=== PATIENT | female | born 1990 | race Caucasian/White ===

== ENCOUNTER → 2022-09-23 | Outpatient (CLI) | payer OTHER ==
[2022-09-23 20:27] LABS: Basophils # (A) 0.02 X 10*3/uL (0.00-0.10); Basophils % (A) 0.2 %; Eosinophils # (A) 0.06 X 10*3/uL (0.04-0.35); Eosinophils % (A) 0.5 %; HGB 13.5 d/dL (12.0-15.0); Lymphocytes # (A) 2.72 X 10*3/uL (0.90-5.00); Lymphocytes % (A) 24.6 %; MCH 30.4 pg (27.0-32.0); MCHC 32.9 d/dL (32.0-37.0); MCV 92.3 FL (80.0-97.0); Mean Platelet Volume 10.2 FL (9.5-12.2); Monocytes # (A) 0.58 X 10*3/uL (0.20-1.00); Monocytes % (A) 5.2 %; NRBC Per 100 WBC 0 X 10*3/uL (0.00-0.01); Neutrophils # (A) 7.65 X 10*3/uL (1.80-7.70); Neutrophils % (A) 69.2 %; Platelet Count 350 X 10*3/uL (140-440); RBC 4.44 X 10*6/uL (4.10-5.20); RDW 12.4 % (11.5-14.5); WBC 11.06 X 10*3/uL (4.50-10.00)
== END | disposition home or self-care (01) ==
LOC: LABWHC1 12:51
PROVIDERS: ATTEND Obstetrics & Gynecology
DX: Z01.812 Encounter for preprocedural laboratory examination (principal)
CPT/HCPCS: 36415; 85025

== ENCOUNTER → 2022-12-19 | Outpatient (CLI) | payer OTHER | END | disposition home or self-care (01) | LOC: LABWHC1 15:40 | PROVIDERS: ATTEND Obstetrics & Gynecology | DX: N92.6 Irregular menstruation, unspecified (principal) | CPT/HCPCS: 36415; 84702 ==

== ENCOUNTER 2023-08-27 15:49 | Inpatient (IN) | payer OTHER ==
[2023-08-27] MEDS ORDERED: LIDOCAINE 0.5% (PF) 5 MG/ML (50 ML SDV) SQ PRN (16:37)
[2023-08-27] MEDS ORDERED: TRANEXAMIC 1,000 MG/100ML-NACL 1,000 MG in EMPTY BAG 1 BAG IV PRN (16:37)
[2023-08-27] MEDS ORDERED: OXYTOCIN 10 UNIT/ML 1 ML VIAL IM PRN (16:37)
[2023-08-27] MEDS ORDERED: CARBOPROST TROMETHAMINE 250 MCG/ML 1 ML AMP IM PRN (16:37)
[2023-08-27] MEDS ORDERED: miSOPROStoL 200 MCG TAB PO PRN (16:37)
[2023-08-27] MEDS ORDERED: TERBUTALINE 1 MG/ML VIAL SQ PRN (16:37)
[2023-08-27] MEDS ORDERED: METHYLERGONOVINE 0.2 MG/ML 1 ML AMP IM PRN (16:37)
[2023-08-27] MEDS: LACTATED RINGERS 1,000 ML IV SCH (17:19)
[2023-08-27 17:38] LABS: Basophils % (A) 0 %; Eosinophils # (A) 0.1 k/uL (0-0.7); Eosinophils % (A) 1 %; HGB 12.7 gm/dL (11.4-16.0); Lymphocytes # (A) 2.8 k/uL (1.0-4.8); Lymphocytes % (A) 16 %; MCH 31.3 pg (25.0-35.0); MCHC 33.3 g/dL (31.0-37.0); MCV 93.9 fL (80.0-100.0); Mean Platelet Volume 9.2; Monocytes # (A) 0.6 k/uL (0-1.0); Monocytes % (A) 3 %; Neutrophils % (A) 78 %; Platelet Count 294 k/uL (150-450); RBC 4.05 m/uL (3.80-5.40); RDW 14.9 % (11.5-15.5); WBC 17.9 k/uL (3.8-10.6)
[2023-08-27] MEDS: OXYTOCIN 30 UNITS/500 ML NS 30 UNIT in SALINE 1 500ML.BAG IV SCH (18:13)
[2023-08-27] MEDS ORDERED: SODIUM CHLORIDE 0.9% 250 ML BAG ONE (22:06)
[2023-08-27] MEDS ORDERED: fentaNYL (PF) 50 MCG/ML 5 ML AMP ONE (22:06)
[2023-08-27] MEDS ORDERED: ROPIVACAINE 5 MG/ML 30 ML VIAL ONE (22:06)
[2023-08-28] MEDS ORDERED: diphenhydrAMINE 25 MG CAP PO PRN (07:26)
[2023-08-28] MEDS ORDERED: HYDROCORTISONE 2.5% RECTAL CREAM 30 GM TUBE RECTAL PRN (07:26)
[2023-08-28] MEDS ORDERED: BENZOCAINE/MENTHOL SPRAY 1 GM/SPRAY AEROSOL TOPICAL PRN (07:26)
[2023-08-28] MEDS ORDERED: LANOLIN CREAM 1 GM TUBE TOPICAL PRN (07:26)
[2023-08-28] MEDS ORDERED: ZOLPIDEM 5 MG TAB PO PRN (07:26)
[2023-08-28] MEDS ORDERED: SIMETHICONE 80 MG CHEWABLE PO PRN (07:26)
[2023-08-28] MEDS ORDERED: diphenhydrAMINE 50 MG CAP PO PRN (07:26)
[2023-08-28] MEDS ORDERED: ACETAMINOPHEN TAB 325 MG TAB PO PRN (07:26)
[2023-08-28] MEDS ORDERED: diphenhydrAMINE 50 MG/ML 1 ML VIAL IVP PRN ×2 (07:26)
[2023-08-28] MEDS ORDERED: OXYTOCIN 30 UNITS/500 ML NS 30 UNIT in SALINE 1 500ML.BAG IV SCH (07:30)
[2023-08-28] MEDS: FAMOTIDINE 20 MG/2 ML VIAL IV STA (07:30)
--- NOTE | 2023-08-28 07:32 | P.HPOB ---
History of Present Illness H&P Date: 08/28/23 Chief Complaint: SROM 43-year-old presented at 39 weeks and 3 days complaining of spontaneous rupture membranes at 1500 on 08/27/2023. Her cervix was 3 cm dilated, 80% effaced, -2 station. She was tayo irregularly. heart tones 135 with moderate variability and reactive. Review of Systems All systems: negative Constitutional: Denies chills, Denies fever Eyes: denies blurred vision, denies pain Ears, nose, mouth and throat: Denies headache, Denies sore throat Cardiovascular: Denies chest pain, Denies shortness of breath Respiratory: Denies cough Gastrointestinal: Denies abdominal pain, Denies diarrhea, Denies nausea, Denies vomiting Genitourinary: Denies dysuria, Denies hematuria Musculoskeletal: Denies myalgias Integumentary: Denies pruritus, Denies rash Neurological: Denies numbness, Denies weakness Psychiatric: Denies anxiety, Denies depression Endocrine: Denies fatigue, Denies weight change Past Medical History Past Medical History: GERD/Reflux Additional Past Medical History / Comment(s): hx stomach ulcer., missed AB., LMP 07/07/22 History of Any Multi-Drug Resistant Organisms: None Reported Past Surgical History: No Surgical Hx Reported Additional Past Surgical History / Comment(s): termination of Additional Past Anesthesia/Blood Transfusion Reaction / Comment(s): no anesthesia hx Past Psychological History: Anxiety, Depression Smoking Status: Current every day smoker Past Alcohol Use History: None Reported Additional Past Alcohol Use History / Comment(s): smokes 1/4 ppd. Past Drug Use History: None Reported - Past Family History Mother Family Medical History: No Reported History Medications and Allergies Home Medications Medication Instructions Recorded Confirmed Type Calcium Carbonate [Tums] 500 mg PO DIRECTED PRN 09/22/22 08/27/23 History Ibuprofen [Motrin] 600 mg PO Q6HR PRN #30 tab 09/25/22 08/27/23 Rx Aspirin 81 mg PO DAILY 08/27/23 08/27/23 History Famotidine [Pepcid] 20 mg PO BID 08/27/23 08/27/23 History Ferrous Sulfate, Dried [Iron] 159 mg PO DAILY 08/27/23 08/27/23 History Vit No.179/Iron/Folic 1 each PO DAILY 08/27/23 08/27/23 History [ Tablet] Allergies Allergy/AdvReac Type Severity Reaction Status Date / Time No Known Allergies Allergy Verified 08/27/23 15:59 Exam Osteopathic Statement: *. No significant issues noted on an osteopathic s tructural exam other than those noted in the History and Physical/Consult. Vital Signs Temp Pulse Resp BP Pulse Ox 08/27/23 16:36 98.5 F 114 H 18 132/81 100 08/27/23 15:59 98.5 F 114 H 18 132/81 100 Intake and Output 08/27/23 08/28/23 08/28/23 22:59 06:59 14:59 Other: # Voids 2 1 Weight 79.832 kg Heart: Regular rate and rhythm Lungs: Clear to auscultation bilaterally Abdomen: Soft, nontender Extremities: Negative Homans sign Results Result Diagrams: 08/27/23 17:15 Abnormal Lab Results - Last 24 Hours (Table) 08/27/23 Range/Units 17:15 WBC 17.9 H (3.8-10.6) k/uL Neutrophils # 14.0 H (1.3-7.7) k/uL Assessment and Plan (1) Spontaneous rupture of membranes Current Visit: Yes Status: Acute Code(s): [id number] - SNOMED Code(s): 733224243 (2) 39 weeks gestation of Current Visit: Yes Status: Acute Code(s): Z3A.39 - 39 WEEKS GESTATION OF SNOMED Code(s): 77411755 Plan: 1. admit to [facility] 2. expectant management with pitocin augmentation if necessary 3. anticipate normal vaginal delivery
--- NOTE | 2023-08-28 07:34 | P.PROBDLV ---
Vaginal Delivery Note - . Vaginal Delivery Note: 33-year-old presented at 39 weeks and 3 days complaining of spontaneous rupture membranes at 1500 on 08/27/2023. Her cervix was 3 cm dilated, 80% effaced, -2 station. She was tayo irregularly. heart tones 135 with moderate variability and reactive. Patient is admitted to [facility] and after a few hours Pitocin augmentation was started. When she was uncomfortable she did get an epidural. Her cervix was completely dilated at 30 3 AM. She pushed, delivered a viable female infant over intact perineum under epidural anesthesia at 7:10 AM. Head delivered OA, anterior shoulder delivered gentle downward guidance followed by posterior shoulder and rest of body. Nose and mouth bulb suctioned, cord clamped and cut, infant placed on mother's abdomen. Apgars 9, 9, weight 5 lbs. 10 oz. Placenta delivered spontaneously, intact with three-vessel cord at 7:13 AM. Vagina, cervix, perineum inspected. Second-degree midline laceration was repaired with 3-0 Vicryl. Estimated blood loss 200 mL. Mother and baby in stable condition.
[2023-08-28] MEDS: IBUPROFEN 600 MG TAB PO PRN (10:25)
[2023-08-28] MEDS: SENNOSIDES-DOCUSATE SODIUM 1 EACH TAB PO SCH (12:02)
[2023-08-28] MEDS: Rhogam IMMUNE GLOBULIN 1,500 UNIT/1 ML IM ONE (13:56)
[2023-08-28] MEDS: MEASLES-MUMPS-RUBELLA VACC/PF 12,500 UNIT/0.5 ML VIAL SQ ONE (23:46)
[2023-08-29 05:21] LABS: Basophils % (A) 0 %; Eosinophils # (A) 0.1 k/uL (0-0.7); Eosinophils % (A) 1 %; Lymphocytes % (A) 23 %; MCH 33.6 pg (25.0-35.0); Mean Platelet Volume 9.5; Monocytes # (A) 0.7 k/uL (0-1.0); Monocytes % (A) 4 %; Neutrophils # (A) 12.1 k/uL (1.3-7.7); Neutrophils % (A) 70 %; Platelet Count 244 k/uL (150-450); RBC 2.82 m/uL (3.80-5.40); RDW 15.1 % (11.5-15.5); WBC 17.4 k/uL (3.8-10.6)
[2023-08-29 05:24] LABS: HGB 9.5 gm/dL (11.4-16.0)
--- NOTE | 2023-08-29 07:28 | P.DS ---
Providers Date of admission: 08/27/23 16:29 Expected date of discharge: 08/29/23 Attending physician: Samantha Mendez Primary care physician: Stated None Hospital Course: Ms. Burch is a 33 year old now PPD#1 s/p normal spontaneous vaginal delivery. The patient is doing well this morning and had no acute events overnight. She has no complaints this morning. She reports minimal lochia, passing flatus, voiding without difficulty, ambulating, and eating/drinking without nausea or vomiting. doing well at bedside, breast-feeding is going well. She denies chest pain, shortness of breathing, fevers, or chills overnight. She denies pain or swelling in the legs. restrictions are reviewed with the patient including pelvic rest for 6 weeks. The patient is encouraged to call the office if she experiences any heavy bleeding, foul- smelling discharge, breast complaints, or any if she has any other concerns. She will follow up in the office with Dr. Mendez in 6 weeks for exam. She will go home with Motrin and plans to use OTC Tylenol as well for pain. All questions are answered. Assessment: 33 year old now PPD#1 s/p Patient Condition at Discharge: Good Plan - Discharge Summary New Discharge Prescriptions: New Ibuprofen [Motrin] 600 mg PO Q6HR PRN #30 tab PRN Reason: Mild Pain (Scale 1 To 3) No Action Calcium Carbonate [Tums] 500 mg PO DIRECTED PRN PRN Reason: Heartburn Ibuprofen [Motrin] 600 mg PO Q6HR PRN #30 tab PRN Reason: Pain Vit No.179/Iron/Folic [ Tablet] 1 each PO DAILY Aspirin 81 mg PO DAILY Famotidine [Pepcid] 20 mg PO BID Ferrous Sulfate, Dried [Iron] 159 mg PO DAILY Discharge Medication List Calcium Carbonate [Tums] 500 mg PO DIRECTED PRN 09/22/22 [History] Ibuprofen [Motrin] 600 mg PO Q6HR PRN #30 tab 09/25/22 [Rx] Aspirin 81 mg PO DAILY 08/27/23 [History] Famotidine [Pepcid] 20 mg PO BID 08/27/23 [History] Ferrous Sulfate, Dried [Iron] 159 mg PO DAILY 08/27/23 [History] Vit No.179/Iron/Folic [ Tablet] 1 each PO DAILY 08/27/23 [History] Ibuprofen [Motrin] 600 mg PO Q6HR PRN #30 tab 08/29/23 [Rx] Follow up Appointment(s)/Referral(s): Samantha Mendez DO [Doctor of Osteopathic Medicine] - 10/09/23 10:30 am Activity/Diet/Wound Care/Special Instructions: Instructions 1. Do not begin any exercise program for 3 weeks. 2. Do not resume sexual relations for 6 weeks or longer if uncomfortable. 3. You may take tub baths or showers at any time. 4. You may use tampons if desired after 6 weeks. 5. Keep any areas repaired with stitches clean and dry. 6. If you are not nursing, wear a good fitting, supportive bra during the day and limit fluid intake for at least 1 week to prevent breast engorgement. 7. Call the office, , within the next week to make appointment for your 6 week checkup if it has not already been made. 8. Report any of the following occurrences to the doctor promptly: a. Heavy, excessive bleeding b. Chills, fever c. Burning or frequency of urination d. Pain or redness and breasts if nursing e. Increasing pain or swelling of vulva (stitches). In addition to the above instructions, the following additional should be followed: 1. No heavy lifting or straining (exercising) until after 6 week checkup. 2. Keep abdominal incision clean and dry: You may wear a dressing if more comfortable. 3. Make office appointment for 2 weeks after delivery date. Discharge Disposition: HOME SELF-CARE
[2023-08-29 09:35] VITALS: BP 110/74; PULSE 82; RESP 14; TEMP 97.8
== END 2023-08-29 12:20 | disposition home or self-care (01) | DRG 807 ==
LOC: FBPOP 15:49 → 4FBP 16:29
PROVIDERS: ADMIT Obstetrics & Gynecology; ATTEND Obstetrics & Gynecology
PROC: 0KQM0ZZ Repair Perineum Muscle, Open Approach (ICD-10-PCS; principal; 2023-08-28)
PROC: 10E0XZZ Delivery of Products of Conception, External Approach (ICD-10-PCS; principal; 2023-08-28)
DX: O70.1 Second degree perineal laceration during delivery (principal); Z37.0 Single live birth; O99.334 Smoking (tobacco) complicating childbirth; K21.9 Gastro-esophageal reflux disease without esophagitis; F17.200 Nicotine dependence, unspecified, uncomplicated; Z87.11 Personal history of peptic ulcer disease; Z79.82 Long term (current) use of aspirin; Z79.899 Other long term (current) drug therapy; Z3A.39 39 weeks gestation of pregnancy
CPT/HCPCS: 59025; 84112; 85025; 85461; 86850; 86900; 86901; 90707; 99213